=== PATIENT | male | born 1975 | race African-American/Black ===

== ENCOUNTER 2017-04-18 09:52 | Inpatient (IN) | payer OTHER ==
[2017-04-18 10:40] VITALS: BMI 25.0
--- NOTE | 2017-04-18 13:34 | HP ---
CIWA Score - CIWA Score Nausea/Vomitin Muscle Tremors: 3 Anxiety: 3 Agitation: 3 Paroxysmal Sweats: 2 Orientation: 0-Oriented Tacttile Disturbances: 2-Mild Itch/Numbness/Burn Auditory Disturbances: 2-Mild Harshness/Frighten Visual Disturbances: 2-Mild Sensitivity Headache: 2-Mild CIWA-Ar Total Score: 22 Admission ROS BHS - HPI Chief Complaint: I NEED HELP TO STOP DRINKING ALCOHOL AND COCAINE Allergies/Adverse Reactions: Allergies Allergy/AdvReac Type Severity Reaction Status Date / Time Fish Containing Products Allergy Severe Hives Verified 04/18/17 13:24 No Known Drug Allergies Allergy Verified 04/18/17 14:09 History of Present Illness: THIS 41 YEARS OLD MALE WITH ALCOHOL AND COCAINE DEPENDENCE,SEEKING DETOX,LAST DETOX 2008 UPSTE LOW BACK PAIN ANXIETY,DEPRESSION AND INSOMNIA NICOTINE DEPENDENCE ASTHMA LONGEST PERIOD OF SOBRIETY 9 MONTHS Exam Limitations: No Limitations - Ebola screening Have you traveled outside of the country in the last 21 days: No Have you had contact with anyone from an Ebola affected area: No Have you been sick,other than usual withdrawal symptoms: No Do you have a fever: No - Review of Systems Constitutional: Loss of Appetite, Malaise, Night Sweats, Changes in sleep, Weakness, Unintentional Wgt. Loss EENT: reports: Nose Congestion Respiratory: reports: No Symptoms reported, Other (HISTORY OF ASTHMA) Cardiac: reports: No Symptoms Reported GI: reports: Diarrhea, Nausea, Vomiting, Abdominal cramping : reports: No Symptoms Reported Musculoskeletal: reports: Back Pain, Muscle Pain Integumentary: reports: Dryness Neuro: reports: Headache, Tremors Endocrine: reports: No Symptoms Reported Hematology: reports: No Symptoms Reported Psychiatric: reports: No Sypmtoms Reported, Judgement Intact, Mood/Affect Appropiate, Orientated x3, Anxious (INSOMNIA), Depressed Patient History - Patient Medical History Hx Anemia: No Hx Asthma: Yes (ON ALBUTEROL INHALER) Hx Chronic Obstructive Pulmonary Disease (COPD): No Hx Cancer: No Hx Cardiac Disorders: No Hx Congestive Heart Failure: No Hx Hypertension: No Hx Hypercholesterolemia: No Hx Pacemaker: No HX Cerebrovascular Accident: No Hx Seizures: No Hx Dementia: No Hx Diabetes: No Hx Gastrointestinal Disorders: No Hx Liver Disease: No Hx Genitourinary Disorders: No Hx Sexually Transmitted Disorders: No Hx Renal Disease (ESRD): No Hx Thyroid Disease: No Hx Human Immunodeficiency Virus (HIV): No (LAST 10/31 ) Hx Hepatitis C: No Hx Depression: Yes (ANXIETY,INSOMNIA) Hx Suicide Attempt: No Hx Bipolar Disorder: No Hx Schizophrenia: No Other Medical History: NO SUICIDAL,NO HOMICIDAL - Patient Surgical History Past Surgical History: No - Smoking Cessation Smoking history: Current every day smoker Have you smoked in the past 12 months: Yes Aproximately how many cigarettes per day: 10 Hx Chewing Tobacco Use: No Initiated information on smoking cessation: Yes 'Breaking Loose' booklet given: 04/18/17 - Substance & Tx. History Hx Alcohol Use: Yes Hx Substance Use: Yes Substance Use Type: Alcohol, Cocaine, Marijuana Hx Substance Use Treatment: Yes (LAST 2008 [facility]) - Substances Abused Alcohol Route: Oral Frequency: Daily Amount used: 10 CANS BEER/ 1PINT LIQUOR Age of first use: 17 Date of Last Use: 04/17/17 Cocaine Route: Inhalation Frequency: Daily Amount used: 2-3 GRAMS Age of first use: 17 Date of Last Use: 04/17/17 Marijuana/Hashish Route: Smoking Frequency: Daily Amount used: $20-30 Age of first use: 17 Date of Last Use: 04/17/17 Family Disease History - Family Disease History Family Disease History: Other: Father (ALCOHOL,), Mother (ALCOHOL, ) Admission Physical Exam S - Vital Signs Vital Signs: Vital Signs - 24 hr 04/18/17 10:39 Temperature 96.6 F L Pulse Rate 61 Respiratory 20 Rate Blood Pressure 124/86 - Physical General Appearance: Yes: Moderate Distress, Tremorous, Irritable, Sweating, Anxious HEENTM: Yes: Normal ENT Inspection, AILEEN, Pharynx Normal Respiratory: Yes: Lungs Clear, Normal Breath Sounds, No Respiratory Distress Neck: Yes: Within Normal Limits, Supple, Trachea in good position Breast: Yes: Within Normal Limits Cardiology: Yes: Within Normal Limits, Regular Rhythm, Regular Rate, S1, S2 Abdominal: Yes: Within Normal Limits, Normal Bowel Sounds, Soft Genitourinary: Yes: Within Normal Limits Back: Yes: Muscle Spasm Musculoskeletal: Yes: full range of Motion, Back pain, Muscle Pain Extremities: Yes: Normal Range of Motion, Tremors 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, Alert, Motor Strength 5/5 Integumentary: Yes: Dry Lymphatic: Yes: Within Normal Limits - Diagnostic (1) Alcohol dependence with uncomplicated withdrawal Current Visit: Yes Status: Acute (2) Cocaine dependence Current Visit: Yes Status: Acute (3) Cannabis dependence Current Visit: Yes Status: Acute (4) Nicotine dependence Current Visit: Yes Status: Acute (5) Insomnia secondary to depression with anxiety Current Visit: Yes Status: Acute Cleared for Admission [facility] - Detox or Rehab [facility] Level of Care: Medically Managed Detox Regimen/Protocol: Librium [facility] Breath Alcohol Content Breath Alcohol Content: 0 Urine Drug Screen - Results Drug Screen Negative: No Urine Drug Screen Results: THC-Marijuana, DHRUV-Cocaine
[2017-04-18] MEDS ORDERED: ACETAMINOPHEN 325 MG TABLET (FP) PO PRN (13:42)
[2017-04-18] MEDS ORDERED: guaiFENesin/D-METHORPHAN HB 10 ML UNIT-DOSE CUPS PO PRN (13:42)
[2017-04-18] MEDS ORDERED: MAGNESIUM CITRATE 300 ML BOTTLE PO PRN (13:42)
[2017-04-18] MEDS ORDERED: MAG HYDROX/AL HYDROX/SIMETH 30 ML UNIT-DOSE CUP PO PRN (13:42)
[2017-04-18] MEDS ORDERED: P-EPHED 60MG/TRIPROLIDI 2.5MG TABLET PO PRN (13:42)
[2017-04-18] MEDS ORDERED: MAGNESIUM HYDROX 2400MG/30ML ORAL SUSPENSION 30 ML CUP PO PRN (13:42)
[2017-04-18] MEDS ORDERED: NICOTINE POLACRILEX 2 MG GUM BC PRN (13:42)
[2017-04-18] MEDS ORDERED: LOPERAMIDE HCL 2 MG CAPSULE PO PRN (13:42)
[2017-04-18] MEDS ORDERED: MENTHOL/PHENOL 1 EACH UD MM PRN (13:42)
[2017-04-18] MEDS ORDERED: hydrOXYzine PAMOATE 50 MG CAPSULE (FP) PO PRN (13:42)
[2017-04-18] MEDS ORDERED: chlordiazePOXIDE HCL 25 MG CAPSULE PO PRN (13:42)
[2017-04-18] MEDS ORDERED: ALBUTEROL SO4 18 GM HFA INHALER IH PRN (13:46)
[2017-04-18] MEDS ORDERED: chlordiazePOXIDE HCL 25 MG CAPSULE PO ONE (14:30)
[2017-04-18] MEDS: NICOTINE 21 MG/24 HOURS TOPICAL PATCH TD SCH (15:21)
[2017-04-18] MEDS: chlordiazePOXIDE HCL 25 MG CAPSULE PO SCH ×2 (18:14→22:17)
[2017-04-18] MEDS: THIAMINE HCL 100 MG TABLET (FP) PO SCH (22:17)
[2017-04-18 22:32] LABS: URINE APPEARANCE CLEAR; URINE BILIRUBIN NEGATIVE (NEGATIVE); URINE BLOOD NEGATIVE (NEGATIVE); URINE COLOR LTYELLOW; URINE GLUCOSE (UA) NEGATIVE (NEGATIVE); URINE KETONE NEGATIVE (NEGATIVE); URINE LEUK ESTERASE NEGATIVE (NEGATIVE); URINE NITRITE NEGATIVE (NEGATIVE); URINE PROTEIN NEGATIVE (NEGATIVE)
[2017-04-19] MEDS: IBUPROFEN 400 MG TABLET (FP) PO PRN ×3 (00:26→19:36)
[2017-04-19] MEDS: LIDOCAINE VISCOUS 2% ORAL/TOP 20 ML UNIT-DOSE CUP MM PRN ×3 (02:37→19:38)
--- NOTE | 2017-04-19 03:49 | PN ---
BHS Progress Note (SOAP) Subjective: Patient states " My mouth hurts a lot because this toothache is unbearable." Restless, moaning and in distress Objective: 04/19/17 03:45 Vital Signs Temperature 97.5 F L 04/19/17 02:24 Pulse Rate 64 04/19/17 02:24 Respiratory Rate 16 04/19/17 03:33 Blood Pressure 125/86 04/19/17 02:24 O2 Sat by Pulse Oximetry (%) Laboratory Last Values Urine Color Ltyellow 04/18/17 16:00 Urine Appearance Clear 04/18/17 16:00 Urine pH 6.0 (5.0-8.0) 04/18/17 16:00 Ur Specific [place] 1.018 (1.001-1.035) 04/18/17 16:00 Urine Protein Negative (NEGATIVE) 04/18/17 16:00 Urine Glucose (UA) Negative (NEGATIVE) 04/18/17 16:00 Urine Ketones Negative (NEGATIVE) 04/18/17 16:00 Urine Blood Negative (NEGATIVE) 04/18/17 16:00 Urine Nitrite Negative (NEGATIVE) 04/18/17 16:00 Urine Bilirubin Negative (NEGATIVE) 04/18/17 16:00 Urine Urobilinogen 2.0 mg/dL (0.2-1.0) 04/18/17 16:00 Ur Leukocyte Esterase Negative (NEGATIVE) 04/18/17 16:00 tooth decay and swelling noted Assessment: 04/19/17 03:49 tooth infection and pain Plan: Lidocaine 2% viscous oral 20mm Q6H prn x 3 days Augumentin 875mg oral BID x 7 days
[2017-04-19] MEDS: chlordiazePOXIDE HCL 25 MG CAPSULE PO SCH ×4 (05:34→22:04)
[2017-04-19] MEDS: AMOX TR/POT CLAV 875MG/125MG TABLETS (FP) PO SCH ×2 (07:14→19:36)
[2017-04-19 10:27] LABS: HEMATOCRIT 41.9 % (35.4-49); HEMOGLOBIN 14.2 GM/dL (11.7-16.9); MCH 31.3 pg (25.7-33.7); MCHC 33.9 g/dl (32.0-35.9); MEAN CELL VOLUME 92.3 fl (80-96); MEAN PLT VOLUME 9.7 fl (7.5-11.1); PLATELET COUNT 209 K/MM3 (134-434); RBC 4.54 M/mm3 (4.00-5.60); RDW 14.9 % (11.9-15.9); WHITE BLOOD COUNT 6.4 K/mm3 (4.0-10.0)
[2017-04-19 10:30] LABS: CHLORIDE 105 mmol/L (98-107); POTASSIUM 4.7 mmol/L (3.5-5.1); SODIUM 142 mmol/L (136-145)
[2017-04-19] MEDS: PRENATAL VITAMINS W/ FOLIC ACID TABLET (FP) PO SCH (10:51)
[2017-04-19] MEDS: NICOTINE 21 MG/24 HOURS TOPICAL PATCH TD SCH (10:51)
[2017-04-19 11:03] LABS: ALK PHOS 63 U/L (45-117); ANION GAP 10 (8-16); BLOOD UREA NITROGEN 16 mg/dL (7-18); CO2 27 mmol/L (21-32); CREATININE 1.4 mg/dL (0.7-1.3); GLUCOSE,RANDOM 72 mg/dL (74-106); SGOT/AST 31 U/L (15-37); SGPT/ALT 32 U/L (12-78); TOT PROT 6.6 g/dl (6.4-8.2)
[2017-04-19 12:01] LABS: SICKLE CELL SCREEN POSITIVE (NEGATIVE)
--- NOTE | 2017-04-19 12:06 | EKG ---
Test Reason : Blood Pressure : / mmHG Vent. Rate : 049 BPM Atrial Rate : 049 BPM P-R Int : 134 ms QRS Dur : 088 ms QT Int : 438 ms P-R-T Axes : 052 056 052 degrees QTc Int : 395 ms SINUS BRADYCARDIA OTHERWISE NORMAL ECG NO PREVIOUS ECGS AVAILABLE Confirmed by MD Jaya, Froy ([id number]) on 04/19/2017 12:05:52 PM Referred By: Confirmed By:Froy Lake MD
--- NOTE | 2017-04-19 12:08 | PN ---
[facility] CIWA - CIWA Score Nausea/Vomitin-No Nausea/No Vomiting Muscle Tremors: 3 Anxiety: 4-Mod. Anxious/Guarded Agitation: 2 Paroxysmal Sweats: 3 Orientation: 0-Oriented Tacttile Disturbances: 3-Moderate Itch/Numb/Burn Auditory Disturbances: 2-Mild Harshness/Frighten Visual Disturbances: 0-None Headache: 0-None Present CIWA-Ar Total Score: 17 BHS Progress Note (SOAP) Subjective: Anxious, Sweating, Tremors, Interrupted Sleep. Objective: PATIENT A & O X 3, OBSERVED AMBULATING ON UNIT. NO ACUTE DISTRESS. 04/19/17 12:06 Vital Signs Temperature 97.3 F L 04/19/17 09:04 Pulse Rate 63 04/19/17 09:04 Respiratory Rate 18 04/19/17 09:04 Blood Pressure 120/87 04/19/17 09:04 O2 Sat by Pulse Oximetry (%) Laboratory Tests 04/18/17 04/19/17 04/19/17 16:00 05:45 05:45 WBC 6.4 RBC 4.54 Hgb 14.2 Hct 41.9 MCV 92.3 MCH 31.3 MCHC 33.9 RDW 14.9 Plt Count 209 MPV 9.7 Sickle Cell Screen Positive Sodium 142 Potassium 4.7 Chloride 105 Carbon Dioxide 27 Anion Gap 10 BUN 16 Creatinine 1.4 H Creat Clearance w eGFR 56.42 Random Glucose 72 L Calcium 9.0 Total Bilirubin 1.0 AST 31 ALT 32 Alkaline Phosphatase 63 Total Protein 6.6 Albumin 4.0 Urine Color Ltyellow Urine Appearance Clear Urine pH 6.0 Ur Specific [place] 1.018 Urine Protein Negative Urine Glucose (UA) Negative Urine Ketones Negative Urine Blood Negative Urine Nitrite Negative Urine Bilirubin Negative Urine Urobilinogen 2.0 Ur Leukocyte Esterase Negative LABS NOTED. RPR RESULT PENDING. 04/19/17 12:08 Assessment: 04/19/17 12:07 WITHDRAWAL SYMPTOMS. Plan: CONTINUE DETOX.
--- NOTE | 2017-04-19 12:44 | CONSULT ---
[facility] Psychiatric Consult - Data Date of interview: 04/19/17 Admission source: [facility] Identifying data: First admission to [facility] for this 41 y/o Aa male seeking detox treatment on for alcohol,cocaine (crack) and cannabis dependence.Patient is ,a father of three,domiciled and currently supported on a part-time job. Substance Abuse History: Confirmed by patient in this interview.Smoking history : Current every day smoker. Have you smoked in the past 12 months: Yes. Aproximately how many cigarettes per day: 10. Hx Chewing Tobacco Use: No. Initiated information on smoking cessation: Yes. 'Breaking Loose' booklet given : 04/18/17. - Substance & Tx. History. Hx Alcohol Use: Yes. Hx Substance Use : Yes. Substance Use Type: Alcohol, Cocaine, Marijuana. Hx Substance Use Treatment: Yes (LAST 2008 [facility]). - Substances Abused. Alcohol. Route: Oral. Frequency: Daily. Amount used: 10 CANS BEER/ 1PINT LIQUOR. Age of first use: 17. Date of Last Use: 04/17/17. Cocaine. Route: Inhalation. Frequency: Daily. Amount used: 2-3 GRAMS. Age of first use: 17. Date of Last Use: 04/17/17. Marijuana/Hashish. Route: Smoking. Frequency: Daily. Amount used: $20-30. Age of first use: 17. Date of Last Use: 04/17/17 Medical History: Bronchial asthma and lower back pain. Psychiatric History: Patient denies history of psychiatric hospitalizations.Has had one psychiatric evaluation at [facility] a few months ago,diagnosed with MDD and Anxiety Disorder,prescribed seroquel + effexor + trazodone (doses not recalled).Mr Raygoza states that he is currently under the care of a private psychiatrist in [facility].Denies history of suicide attempts. Physical/Sexual Abuse/Trauma History: Patient denies. Additional Comment: Urine Drug Screen Results: THC-Marijuana, DHRUV-Cocaine.Noted. Mental Status Exam - Mental Status Exam Alert and Oriented to: Time, Place, Person Cognitive Function: Good Patient Appearance: Well Groomed (tattoos on both arms + forearms) Mood: Nervous, Withdrawn, Anxious Affect: Mood Congruent, Constricted Patient Behavior: Fatigued, Appropriate, Cooperative Speech Pattern: Clear, Appropriate Voice Loudness: Normal Thought Process: Goal Oriented Thought Disorder: Not Present Hallucinations: Denies Suicidal Ideation: Denies Homicidal Ideation: Denies Insight/Judgement: Poor Sleep: Poorly, Difficulty falling asleep Appetite: Good Muscle strength/Tone: Normal Gait/Station: Normal Psychiatric Findings - Problem List ([place] 1, 2,3) (1) Alcohol dependence with uncomplicated withdrawal Current Visit: Yes Status: Acute (2) Cannabis dependence Current Visit: Yes Status: Acute (3) Cocaine dependence Current Visit: Yes Status: Acute Qualifiers: Substance use status: uncomplicated Qualified Code(s): F14.20 - Cocaine dependence, uncomplicated (4) Nicotine dependence Current Visit: Yes Status: Acute Qualifiers: Nicotine product type: cigarettes Substance use status: uncomplicated Qualified Code(s): F17.210 - Nicotine dependence, cigarettes, uncomplicated (5) Substance induced mood disorder Current Visit: Yes Status: Acute (6) Insomnia Current Visit: Yes Status: Acute (7) MDD (major depressive disorder) Current Visit: Yes Status: Chronic Comment: As per self-report.On medications.Active [facility] care. - Initial Treatment Plan Initial Treatment Plan: Psychoeducation.Sleep hygiene.Detoxification in progress.Medications : effexor 37.5 mg po daily + trazodone 100 mg po hs + seroquel 50 mg po hs.Side effects/benefits of each drug are discussed in this session.Patient is made aware,in particular,of the risk of hypertension,priapism ,oversedation,abnormal involuntary movements and metabolic syndrome.Mr Raygoza has agreed to follow this careplan.Observation.Contact made with pharmacist at [facility] [phone] (patient gave his verbal authorization to this sql report writer) : refills for effexor 37.5 mg/day + trazodone 100 mg/hs are still at the pharmacy (not picked up since 03/25/17 and 04/17/17).No trace of seroquel ( likely from another pharmacy).Patient insists on the inclusion of seroquel in the current regime of treatment.NO scripts required at discharge from [facility].
[2017-04-19] MEDS: QUEtiapine FUMARATE 50 MG TABLET PO SCH (22:04)
[2017-04-19] MEDS: traZODone HCL 100 MG TABLET (FP) PO SCH (22:04)
[2017-04-19] MEDS: THIAMINE HCL 100 MG TABLET (FP) PO SCH (22:04)
[2017-04-20] MEDS: chlordiazePOXIDE HCL 25 MG CAPSULE PO SCH ×2 (05:41→10:14)
[2017-04-20] MEDS: AMOX TR/POT CLAV 875MG/125MG TABLETS (FP) PO SCH ×2 (07:49→17:47)
[2017-04-20] MEDS: NICOTINE 21 MG/24 HOURS TOPICAL PATCH TD SCH (10:14)
[2017-04-20] MEDS: PRENATAL VITAMINS W/ FOLIC ACID TABLET (FP) PO SCH (10:14)
[2017-04-20] MEDS: VENLAFAXINE HCL 37.5 MG TABLET PO SCH (10:14)
--- NOTE | 2017-04-20 11:56 | PN ---
S CIWA - CIWA Score Nausea/Vomitin-No Nausea/No Vomiting Muscle Tremors: 2 Anxiety: 4-Mod. Anxious/Guarded Agitation: 2 Paroxysmal Sweats: 2 Orientation: 0-Oriented Tacttile Disturbances: 1-Very Mild Itch/Numbness Auditory Disturbances: 1-Very Mild Visual Disturbances: 2-Mild Sensitivity Headache: 0-None Present CIWA-Ar Total Score: 14 BHS Progress Note (SOAP) Subjective: Fatigue, Tremors, Sweating, Interrupted Sleep. Objective: PATIENT A & O X 3, OBSERVED AMBULATING ON UNIT. NO ACUTE DISTRESS. 04/20/17 11:54 Vital Signs Temperature 97.9 F 04/20/17 09:07 Pulse Rate 72 04/20/17 09:07 Respiratory Rate 18 04/20/17 09:07 Blood Pressure 104/75 04/20/17 09:07 O2 Sat by Pulse Oximetry (%) Laboratory Tests 04/18/17 04/19/17 04/19/17 16:00 05:45 05:45 WBC 6.4 RBC 4.54 Hgb 14.2 Hct 41.9 MCV 92.3 MCH 31.3 MCHC 33.9 RDW 14.9 Plt Count 209 MPV 9.7 Sickle Cell Screen Positive Sodium 142 Potassium 4.7 Chloride 105 Carbon Dioxide 27 Anion Gap 10 BUN 16 Creatinine 1.4 H Creat Clearance w eGFR 56.42 Random Glucose 72 L Calcium 9.0 Total Bilirubin 1.0 AST 31 ALT 32 Alkaline Phosphatase 63 Total Protein 6.6 Albumin 4.0 Urine Color Ltyellow Urine Appearance Clear Urine pH 6.0 Ur Specific [place] 1.018 Urine Protein Negative Urine Glucose (UA) Negative Urine Ketones Negative Urine Blood Negative Urine Nitrite Negative Urine Bilirubin Negative Urine Urobilinogen 2.0 Ur Leukocyte Esterase Negative RPR Titer 04/19/17 05:45 WBC RBC Hgb Hct MCV MCH MCHC RDW Plt Count MPV Sickle Cell Screen Sodium Potassium Chloride Carbon Dioxide Anion Gap BUN Creatinine Creat Clearance w eGFR Random Glucose Calcium Total Bilirubin AST ALT Alkaline Phosphatase Total Protein Albumin Urine Color Urine Appearance Urine pH Ur Specific [place] Urine Protein Urine Glucose (UA) Urine Ketones Urine Blood Urine Nitrite Urine Bilirubin Urine Urobilinogen Ur Leukocyte Esterase RPR Titer Nonreactive LABS NOTED. Assessment: 04/20/17 11:55 WITHDRAWAL SYMPTOMS. Plan: CONTINUE DETOX. INCREASE DAILY PO FLUID INTAKE.
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
[2017-04-20] MEDS: chlordiazePOXIDE 5 MG CAPSULE PO SCH ×2 (17:47→22:44)
[2017-04-20] MEDS: THIAMINE HCL 100 MG TABLET (FP) PO SCH (22:44)
[2017-04-20] MEDS: traZODone HCL 100 MG TABLET (FP) PO SCH (22:45)
[2017-04-20] MEDS: QUEtiapine FUMARATE 50 MG TABLET PO SCH (22:45)
[2017-04-21] MEDS: chlordiazePOXIDE 5 MG CAPSULE PO SCH ×2 (05:28→10:38)
[2017-04-21] MEDS: AMOX TR/POT CLAV 875MG/125MG TABLETS (FP) PO SCH ×2 (07:08→17:50)
[2017-04-21] MEDS: PRENATAL VITAMINS W/ FOLIC ACID TABLET (FP) PO SCH (10:39)
[2017-04-21] MEDS: NICOTINE 21 MG/24 HOURS TOPICAL PATCH TD SCH (10:39)
--- NOTE | 2017-04-21 10:47 | PN ---
S Progress Note (SOAP) Subjective: ALERT,IRRITABLE,INTERRUPTED SLEEP Objective: 04/21/17 10:46 Vital Signs Temperature 98.1 F 04/21/17 06:19 Pulse Rate 66 04/21/17 06:19 Respiratory Rate 18 04/21/17 06:19 Blood Pressure 107/57 04/21/17 06:19 O2 Sat by Pulse Oximetry (%) Assessment: 04/21/17 10:46 WITHDRAWAL SYMPTOM Plan: CONTINUE DETOX,DISCHARGE IN AM
[2017-04-21] MEDS: VENLAFAXINE HCL 37.5 MG TABLET PO SCH (13:23)
[2017-04-21] MEDS: IBUPROFEN 400 MG TABLET (FP) PO PRN (13:26)
[2017-04-21] MEDS ORDERED: chlordiazePOXIDE HCL 10 MG CAPSULE PO SCH (17:00)
--- NOTE | 2017-04-21 17:35 | DS ---
[facility] Detox Discharge Summary Admission Date: 04/18/17 - History Present History: Alcohol Dependence, Cocaine Dependence Pertinent Past History: Insomnia Nicotine Dependence - Physical Exam Results Vital Signs: Vital Signs Temperature 98.6 F 04/21/17 12:53 Pulse Rate 75 04/21/17 12:53 Respiratory Rate 20 04/21/17 12:53 Blood Pressure 115/75 04/21/17 12:53 O2 Sat by Pulse Oximetry (%) Pertinent Admission Physical Exam Findings: Vital Signs Temperature 98.6 F 04/21/17 12:53 Pulse Rate 75 04/21/17 12:53 Respiratory Rate 20 04/21/17 12:53 Blood Pressure 115/75 04/21/17 12:53 O2 Sat by Pulse Oximetry (%) Laboratory Last Values WBC 6.4 K/mm3 (4.0-10.0) 04/19/17 05:45 RBC 4.54 M/mm3 (4.00-5.60) 04/19/17 05:45 Hgb 14.2 GM/dL (11.7-16.9) 04/19/17 05:45 Hct 41.9 % (35.4-49) 04/19/17 05:45 MCV 92.3 fl (80-96) 04/19/17 05:45 MCH 31.3 pg (25.7-33.7) 04/19/17 05:45 MCHC 33.9 g/dl (32.0-35.9) 04/19/17 05:45 RDW 14.9 % (11.9-15.9) 04/19/17 05:45 Plt Count 209 K/MM3 (134-434) 04/19/17 05:45 MPV 9.7 fl (7.5-11.1) 04/19/17 05:45 Sickle Cell Screen Positive (NEGATIVE) 04/19/17 05:45 Sodium 142 mmol/L (136-145) 04/19/17 05:45 Potassium 4.7 mmol/L (3.5-5.1) 04/19/17 05:45 Chloride 105 mmol/L (98-107) 04/19/17 05:45 Carbon Dioxide 27 mmol/L (21-32) 04/19/17 05:45 Anion Gap 10 (8-16) 04/19/17 05:45 BUN 16 mg/dL (7-18) 04/19/17 05:45 Creatinine 1.4 mg/dL (0.7-1.3) H 04/19/17 05:45 Creat Clearance w eGFR 56.42 (>60) 04/19/17 05:45 Random Glucose 72 mg/dL (74-106) L 04/19/17 05:45 Calcium 9.0 mg/dL (8.5-10.1) 04/19/17 05:45 Total Bilirubin 1.0 mg/dL (0.2-1.0) 04/19/17 05:45 AST 31 U/L (15-37) 04/19/17 05:45 ALT 32 U/L (12-78) 04/19/17 05:45 Alkaline Phosphatase 63 U/L (45-117) 04/19/17 05:45 Total Protein 6.6 g/dl (6.4-8.2) 04/19/17 05:45 Albumin 4.0 g/dl (3.4-5.0) 04/19/17 05:45 Urine Color Ltyellow 04/18/17 16:00 Urine Appearance Clear 04/18/17 16:00 Urine pH 6.0 (5.0-8.0) 04/18/17 16:00 Ur Specific [place] 1.018 (1.001-1.035) 04/18/17 16:00 Urine Protein Negative (NEGATIVE) 04/18/17 16:00 Urine Glucose (UA) Negative (NEGATIVE) 04/18/17 16:00 Urine Ketones Negative (NEGATIVE) 04/18/17 16:00 Urine Blood Negative (NEGATIVE) 04/18/17 16:00 Urine Nitrite Negative (NEGATIVE) 04/18/17 16:00 Urine Bilirubin Negative (NEGATIVE) 04/18/17 16:00 Urine Urobilinogen 2.0 mg/dL (0.2-1.0) 04/18/17 16:00 Ur Leukocyte Esterase Negative (NEGATIVE) 04/18/17 16:00 RPR Titer Nonreactive (NONREACTIVE) 04/19/17 05:45 - Medication Discharge Medications: Ambulatory Orders NK [No Known Home Medication] 04/18/17 - Diagnosis (1) Alcohol dependence with uncomplicated withdrawal Current Visit: Yes Status: Acute (2) Cannabis dependence Current Visit: Yes Status: Acute (3) Cocaine dependence Current Visit: Yes Status: Acute Qualifiers: Substance use status: uncomplicated Qualified Code(s): F14.20 - Cocaine dependence, uncomplicated (4) Insomnia Current Visit: Yes Status: Acute (5) Nicotine dependence Current Visit: Yes Status: Acute Qualifiers: Nicotine product type: cigarettes Substance use status: uncomplicated Qualified Code(s): F17.210 - Nicotine dependence, cigarettes, uncomplicated - AMA Did Patient Leave Against Medical Advice: Yes
[2017-04-21 18:14] VITALS: BP 125/101; PULSE 72; TEMP 98.1
[2017-04-22 14:14] LABS: HGB SOLUBILITY Positive (Negative); Hgb A 53.5 % (96.4-98.8); Hgb C 0 % (0.0); Hgb F 1.9 % (0.0-2.0); Hgb S 40.6 % (0.0)
== END 2017-04-21 17:52 | disposition left against medical advice (07) | DRG 770 ==
LOC: YASAS 09:52 → Y3N 13:43 → Y6N 04-20 15:45
PROVIDERS: ADMIT Internal Medicine; ATTEND Internal Medicine
PROC: HZ2ZZZZ Detoxification Services for Substance Abuse Treatment (ICD-10-PCS; principal; 2017-04-18)
DX: F10.230 Alcohol dependence with withdrawal, uncomplicated (principal); F14.20 Cocaine dependence, uncomplicated; F12.20 Cannabis dependence, uncomplicated; F17.210 Nicotine dependence, cigarettes, uncomplicated; F51.05 Insomnia due to other mental disorder; F33.9 Major depressive disorder, recurrent, unspecified; G47.00 Insomnia, unspecified; J45.909 Unspecified asthma, uncomplicated; M54.5 Low back pain; K02.9 Dental caries, unspecified; Z91.013 Allergy to seafood
CPT/HCPCS: 36415; 80053; 81003; 83021; 85027; 85660; 86593; 93005; 93010